=== PATIENT | male | born 1985 | race Caucasian/White ===

== ENCOUNTER 2020-11-02 09:07 | Emergency (ER) | payer BC ==
[~2020-11-02] VITALS: Wt 68.0 kg
[2020-11-02] MEDS ORDERED: CLARITIN10 MG PO (09:25)
[2020-11-02] MEDS ORDERED: PREDNISONE50 MG PO (14:10)
[2020-11-02] MEDS ORDERED: EPIPEN 2-P0.3 MG/0.3 IJ (14:13)
== END 2020-11-02 14:14 | disposition home or self-care (01) ==
LOC: ED 09:07
DX: T78.49XA Other allergy, initial encounter (principal); L50.9 Urticaria, unspecified; F17.200 Nicotine dependence, unspecified, uncomplicated; Z88.8 Allergy status to other drugs, medicaments and biological substances; Z91.048 Other nonmedicinal substance allergy status; Z79.899 Other long term (current) drug therapy; X58.XXXA Exposure to other specified factors, initial encounter